=== PATIENT | female | born 1995 | race Caucasian/White ===

== ENCOUNTER 2016-11-21 11:13 | Emergency (ER) | payer MEDICAID ==
[2016-11-21 11:23] VITALS: BP 110/64; PULSE 94; RESP 18; O2SAT 98
--- NOTE | 2016-11-21 11:55 | EDPHY ---
H & P Stated Complaint: Throat sore x 4 days;mildly inflammed w/o exudate Source: Patient Exam Limitations: No limitations - Personal History LMP (Females 10-55): 8-14 Days Ago - Medical/Surgical History Other PMH: anxiety/depression HPI/ROS: CHIEF COMPLAINT: Sore throat, strep exposure HISTORY OF PRESENT ILLNESS: Patient complains of sore throat that started yesterday. It is moderately painful. Worse with swallowing. No difficulty breathing. No hoarseness described. No exudates which does have a fever and generalized malaise. She feels ill. Her brother was diagnosed with strep with a positive strep test. She is not taking medications. No chest pain. No headache. No neck pain or stiffness. No other associated complaints or modifying factors. REVIEW OF SYSTEMS: Ten systems reviewed and are negative unless otherwise noted in the HPI PAST MEDICAL HISTORY: No medical history SOCIAL HISTORY: Nonsmoker. No alcohol. No illicit substances FAMILY HISTORY: Noncontributory EXAMINATION General Appearance: Alert, no distress Head: normocephalic, atraumatic Eyes: Pupils equal and round, no conjunctival pallor or injection ENT, Mouth: Mucous membranes moist. There is moderate posterior erythema. No edema. Uvula is midline. No asymmetry. No peritonsillar abscess. Minimal exudate. Neck: Anterior cervical lymphadenopathy. Normal inspection, supple, non-tender Respiratory: Lungs are clear to auscultation Cardiovascular: Regular rate and rhythm. No murmur. Skin: Warm and dry, no rash no petechiae or purpura Extremities: Nontender, no pedal edema Psychiatric: Mood and affect normal DIFFERENTIAL DIAGNOSES: Including but not limited to strep pharyngitis, viral pharyngitis, tonsillitis, peritonsillar abscess, Adriano's MDM: 11:35 a.m. Acute pharyngitis in a patient who has been exposed to strep pharyngitis recently with a positive strep test in the family. No evidence of peritonsillar abscess. I will treat empirically given the positive test the family without testing. She is comfortable with this plan. I did offer a strep test and she has declined. Provide a work note. I would like her to increase her fluid intake and anti-inflammatories [id number]. Prescriptions as discussed. She is comfortable with this plan and discharged home stable condition. SUPERVISION: This patient was independently evaluated without direct examination by the attending physician. Case was discussed with attending physician. (Kye Peña ) Constitutional: Initial Vital Signs Temperature (C) 36.8 C 11/21/16 11:20 Heart Rate 94 11/21/16 11:20 Respiratory Rate 18 11/21/16 11:20 Blood Pressure 110/64 11/21/16 11:20 O2 Sat (%) 98 11/21/16 11:20 O2 Delivery Mode Room Air Allergies/Adverse Reactions: No Known Allergies Allergy (Unverified 11/21/16 11:19) Home Medications: Medication Instructions Recorded Acetaminophen/Codeine 300/30Mg 1 each PO Q6 PRN #11 tab 11/21/16 [Tylenol #3 (*)] Amoxicillin/Clavulanate Pot 875 mg PO BID #14 tab 11/21/16 [Augmentin 875 MG TAB (*)] Control 11/21/16 Citalopram Hydrobromide [celeXA 10 10 mg PO DAILY 11/21/16 MG] Dexamethasone [Decadron 4 MG (*)] 8 mg PO DAILY #2 tab 11/21/16 Medical Decision Making ED Course/Re-evaluation: I did not see this patient while she was in the emergency department. However her care was discussed with the PA while the patient was in the department. I agree with treatment plan and management (Jhonathan Pascual) Departure - Departure Disposition: Home, Routine, Self-Care Clinical Impression: Acute pharyngitis Condition: Good Instructions: Pharyngitis (ED), Strep Throat (ED) Additional Instructions: 1. Increase her fluid intake 2. Prescriptions as prescribed to completion 3. [id number] anti-inflammatories, ibuprofen 600 mg every 8 hours as needed for the next 5 days or Aleve twice daily as needed for the next 5 days 4. Follow up primary care physician 5. ER precautions as discussed Referrals: NONE *PRIMARY CARE P,. [Primary Care Provider] - As per Instructions Blake Orellana MD [[facility] [place]] - As per Instructions [facility] [Clinic] - As per Instructions Stand Alone Forms: Work Excuse Prescriptions: Acetaminophen/Codeine 300/30Mg [Tylenol #3 (*)] 1 each PO Q6 PRN #11 tab PRN Reason: Pain, Mild Amoxicillin/Clavulanate Pot [Augmentin 875 MG TAB (*)] 875 mg PO BID #14 tab Dexamethasone [Decadron 4 MG (*)] 8 mg PO DAILY #2 tab
[2016-11-21 12:08] VITALS: TEMP 98.1
== END 2016-11-21 12:08 | disposition home or self-care (01) ==
DX: J02.9 Acute pharyngitis, unspecified (principal)